=== PATIENT | male | born 1965 | race Two or more races ===

== ENCOUNTER 2020-03-04 16:56 | Emergency (ER) | payer MEDICAID, OTHER ==
[~2020-03-04] VITALS: Ht 160 cm; Wt 81.6 kg
[2020-03-04 17:43] VITALS: BP 156/88
[2020-03-04 17:59] LABS: Basophils # (auto) 0.1 10 ^3/uL (0-0.2); Eosinophils # (auto) 0.2 10 ^3/uL (0-0.8); Hemoglobin 15.1 g/dL (13.5-17.5); Lymphocytes # (auto) 1.2 10 ^3/uL (0.4-5.4); Lymphocytes % (auto) 17.3 % (10.0-50.0); Mean Corpuscular Hemoglobin 32.7 pg (28.0-32.0); Mean Corpuscular Hgb Conc. 34.3 g/dL (32.0-36.0); Mean Corpuscular Volume 95.4 fL (80.0-100.0); Monocytes # (auto) 0.5 10 ^3/uL (0-1.3); Neutrophils # (auto) 5.1 10 ^3/uL (1.6-8.6); Neutrophils % (auto) 71.7 % (37.0-80.0); Nucleated Red Blood Cells % 0.1 %; Platelet Count (auto) 183 10^3/uL (140-450); Red Blood Cells 4.61 10^6/uL (4.5-5.90); Red Cell Distribution Width 12.3 % (11.8-14.3)
[2020-03-04 18:18] LABS: Albumin 3.8 g/dL (3.4-5.0); Calcium 7.9 mg/dL (8.5-10.1); Potassium 3.7 mmol/L (3.5-5.1)
[2020-03-04 18:19] LABS: Urine Bacteria NONE SEEN /hpf (None Seen); Urine Blood Negative /uL (Negative); Urine Mucus FEW (None Seen); Urine Specific Gravity 1.028 (1.001-1.035); Urine WBC 2 /hpf (0 - 3)
[2020-03-04 18:21] LABS: BUN/Creatinine Ratio 13.7; Bilirubin, Total 0.2 mg/dL (0.2-1.0); Total Protein 7.5 g/dL (6.4-8.2)
[2020-03-04] MEDS ORDERED: THIAMINE 100mg/ml INJ (200mg/2ml VIAL) IV ONE (18:45)
[2020-03-04 20:12] LABS: INR 0.92 (0.9-1.15); Partial Thromboplastin Time 27.6 sec (23.0-31.2)
== END 2020-03-04 21:06 | disposition left against medical advice (07) ==
LOC: ER 16:56
DX: R20.0 Anesthesia of skin (principal); G92 Toxic encephalopathy; F10.920 Alcohol use, unspecified with intoxication, uncomplicated
CPT/HCPCS: 36415; 70450; 71045; 80053; 80320; 81001; 85025; 85610; 85730; 93005